=== PATIENT | female | born 1965 | race Caucasian/White ===

== ENCOUNTER → 2017-08-06 | Outpatient (CLI) | payer OTHER ==
--- NOTE | 2017-08-06 15:51 | DIREP ---
PROCEDURE:XRAY FOOT MIN 3 VWS-RT COMPARISON:None. INDICATIONS:M79.671 PAIN IN RIGHT FOOT, S99.921A INJURY RIGHT FOOT INITIAL ENCOUNTER FINDINGS: BONES:Moderate plantar and mild posterior calcaneal spurring. JOINTS:Normal. SOFT TISSUES:Normal. OTHER:No additional findings. CONCLUSION: 1. Moderate plantar and mild posterior calcaneal spurring. 2. No acute deformities or significant degenerative joint disease. Dictated by: Enrico Rees MD on 08/06/2017 at 03:46 PM
== END | disposition home or self-care (01) ==
LOC: RAD 14:57
PROVIDERS: ATTEND Nurse Practitioner Adult Health
DX: S99.921A Unspecified injury of right foot, initial encounter (principal); X58.XXXA Exposure to other specified factors, initial encounter; Y93.89 Activity, other specified; Y92.89 Other specified places as the place of occurrence of the external cause; Y99.2 Volunteer activity
CPT/HCPCS: 73630-RT